=== PATIENT | male | born 1995 | race Two or more races ===

== ENCOUNTER 2021-05-15 10:24 | Emergency (ER) | payer SELFPAY ==
--- NOTE | 2021-05-15 10:49 | EDM.PDOC ---
ED HPI GENERAL MEDICAL PROBLEM - General Chief Complaint: Gastrointestinal Problem Stated Complaint: VOMITTING BLOOD Time Seen by Provider: 05/15/21 10:44 Source of Information: Reports: Patient History Limitations: Reports: No Limitations - History of Present Illness INITIAL COMMENTS - FREE TEXT/NARRATIVE: 25-year-old male presents to the ED reporting that he has been vomiting up some bright red blood off and on since yesterday morning. Patient states first emesis was in the shower yesterday morning which was bilious. Second and third emeses after dry heaving did contain flecks of blood and streaks of blood. He vomited again this morning even though he did not eat with flecks of blood in the emesis as well. Patient denies any recent heavy alcohol use. Last heavy u se of alcohol was about 2 weeks ago. He denies using Motrin, Aleve, aspirin. He takes Benadryl as needed for help sleeping. He has no pain in his abdomen or history of dyspepsia that would suggest peptic ulcer disease. He denies any diarrhea. He denies any black tarry stool. Does not feel lightheaded dizzy or weak. No noted fever or chills. No previous similar events. Patient has no odynophagia with swallowing this morning. Onset: Sudden Onset Date: 05/14/21 (Emesis containing blood was yesterday morning after getting up and showering) Onset Time: 06:00 Duration: Hour(s):, Waxing/Waning Location: Reports: Abdomen (Recurrent intermittent vomiting some of the emesis containing streaks of bright red blood. There has been times of significant dry heaves.) Quality: Reports: Other (Intermittent vomiting containing hematemesis) Severity: Mild Improves with: Reports: None Worsens with: Reports: Eating Context: Denies: Activity, Exercise (Eating or drinking seem to make it worse.), Lifting, Sick Contact, Trauma, Other Associated Symptoms: Reports: No Other Symptoms, Loss of Appetite, Nausea/Vomiting. 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.) - Related Data Allergies Allergy/AdvReac Type Severity Reaction Status Date / Time No Known Allergies Allergy Verified 05/15/21 10:40 Home Meds: Home Meds Ondansetron [Zofran] 4 mg BUCCAL Q6H PRN #5 tab 05/15/21 [Rx] Past Medical History - Past Health History Medical/Surgical History: Denies Medical/Surgical History Social & Family History - Tobacco Use Tobacco Use Status *Q: Never Tobacco User - Caffeine Use Caffeine Use: Reports: None - Alcohol Use Alcohol Use History: Yes Days Per Week of Alcohol Use: 1 - Recreational Drug Use Recreational Drug Use: No - Living Situation & Occupation Occupation: Employed ED ROS GENERAL - Review of Systems Review Of Systems: See Below Constitutional: Reports: Decreased Appetite. Denies: Fever, Chills, Malaise, Weakness, Fatigue, Weight Loss HEENT: Reports: No Symptoms Respiratory: Reports: No Symptoms Cardiovascular: Reports: No Symptoms Endocrine: Reports: No Symptoms GI/Abdominal: Reports: Decreased Appetite (Since yesterday). Denies: Abdominal Pain : Reports: No Symptoms Musculoskeletal: Reports: No Symptoms Skin: Reports: No Symptoms Neurological: Reports: No Symptoms Psychiatric: Reports: No Symptoms Hematologic/Lymphatic: Reports: No Symptoms Immunologic: Reports: No Symptoms ED EXAM, GI/ABD - Physical Exam Exam: See Below Exam Limited By: No Limitations General Appearance: Alert, WD/WN, No Apparent Distress, Other (Color is normal. Temperature is 36.6. Pulse 67 and sinus. Respiratory to 16 with O2 sats of 98% room air. BP 135/78.) Eyes: Bilateral: Normal Appearance (No blepharal pallor or scleral icterus.) Throat/Mouth: Other Head: Atraumatic (Tongue is very dry and coated quite white. He has not ate or drank much at all today.), Normocephalic Neck: Normal Inspection, Supple, Non-Tender, Full Range of Motion. No: Carotid Bruit, Lymphadenopathy (L), Lymphadenopathy (R) Respiratory/Chest: No Respiratory Distress, Lungs Clear, Normal Breath Sounds, No Accessory Muscle Use, Chest Non-Tender Cardiovascular: Normal Peripheral Pulses, Regular Rate, Rhythm, No Edema, No Gallop, No Murmur, No Rub GI/Abdominal Exam: Normal Bowel Sounds, Soft, Non-Tender, No Organomegaly, No Distention, No Mass, Pelvis Stable. No: No Abnormal Bruit, Guarding, Rigid, Rebound, Tender (Male) Exam: No Hernia Back Exam: Normal Inspection, Full Range of Motion. No: CVA Tenderness (L), CVA Tenderness (R) Extremities: Normal Inspection, Normal Range of Motion, Non-Tender, No Pedal Edema Neurological: Alert, Oriented, CN II-XII Intact, Normal Cognition, Normal Gait Psychiatric: Normal Affect, Normal Mood Skin Exam: Warm, Dry, Intact, Normal Color, No Rash Course - Vital Signs Last Recorded V/S: Last Vital Signs Temp 36.6 C 05/15/21 10:37 Pulse 67 05/15/21 10:37 Resp 16 05/15/21 10:37 BP 135/78 05/15/21 10:37 Pulse Ox 98 05/15/21 10:37 Orthostatic Blood Pressure [ 123/83 Standing] Orthostatic Blood Pressure [ 134/80 Sitting] Orthostatic Blood Pressure [ 132/79 Supine] - Orders/Labs/Meds Labs: Laboratory Tests 05/15/21 05/15/21 05/15/21 Range/Units 11:07 11:07 11:07 WBC 11.61 H (4.23-9.07) K/mm3 RBC 6.06 (4.63-6.08) M/mm3 Hgb 17.8 H (13.7-17.5) gm/dl Hct 51.7 H (40.1-51.0) % MCV 85.3 (79.0-92.2) fl MCH 29.4 (25.7-32.2) pg MCHC 34.4 (32.2-35.5) g/dl RDW Std Deviation 42.9 (35.1-43.9) fL Plt Count 332 (163-337) K/mm3 MPV 9.8 (9.4-12.3) fl Neut % (Auto) 65.7 (34.0-67.9) % Lymph % (Auto) 23.2 (21.8-53.1) % [place] % (Auto) 8.2 (5.3-12.2) % Eos % (Auto) 2.2 (0.8-7.0) Baso % (Auto) 0.4 (0.1-1.2) % Neut # (Auto) 7.63 H (1.78-5.38) K/mm3 Lymph # (Auto) 2.69 (1.32-3.57) K/mm3 [place] # (Auto) 0.95 H (0.30-0.82) K/mm3 Eos # (Auto) 0.25 (0.04-0.54) K/mm3 Baso # (Auto) 0.05 (0.01-0.08) K/mm3 Manual Slide Review Abnormal smear PT 11.0 (9.7-12.0) SECONDS INR 1.03 APTT 27.1 (21.7-31.4) SECONDS Sodium 140 (136-145) mEq/L Potassium 3.2 L (3.5-5.1) mEq/L Chloride 101 (98-107) mEq/L Carbon Dioxide 28 (21-32) mEq/L Anion Gap 14.2 (5-15) BUN 12 (7-18) mg/dL Creatinine 1.3 (0.7-1.3) mg/dL Est Cr Clr Drug Dosing 82.63 mL/min Estimated GFR (MDRD) > 60 (>60) mL/min BUN/Creatinine Ratio 9.2 L (14-18) Glucose 87 (70-99) mg/dL Calcium 8.9 (8.5-10.1) mg/dL Total Bilirubin 1.3 H (0.2-1.0) mg/dL AST 43 H (15-37) U/L ALT 98 H (16-63) U/L Alkaline Phosphatase 67 (46-116) U/L C-Reactive Protein 1.6 H* (<1.0) mg/dL Total Protein 8.6 H (6.4-8.2) g/dl Albumin 4.5 (3.4-5.0) g/dl Globulin 4.1 gm/dL Albumin/Globulin Ratio 1.1 (1-2) Lipase 113 (73-393) U/L Meds: Medications Discontinued Medications Generic Name Dose Route Start Last Admin Trade Name Freq PRN Reason Stop Dose Admin Dextrose/Lactated Ringer's 1,000 mls @ 999 mls/hr 05/15/21 11:00 05/15/21 11:10 Dextrose 5%-Lactated Ringers IV 999 mls/hr ASDIRECTED SANAM Administration Metoclopramide HCl 10 mg 05/15/21 10:51 05/15/21 11:10 Metoclopramide 10 Mg/2 Ml Sdv IVPUSH 05/15/21 10:52 10 mg ONETIME ONE Administration Pantoprazole Sodium 80 mg 05/15/21 10:50 05/15/21 11:10 Pantoprazole 40 Mg Vial IVPUSH 05/15/21 10:51 80 mg BOLUS ONE Administration - Radiology Interpretation Free Text/Narrative:: 25-year-old male presents to the ED reporting spontaneous emesis first thing yesterday morning while getting ready for work in the shower. Second emesis seem to contain a few streaks of blood and third fourth emeses did contain streaks of blood. He did throw up again this morning with his few streaks of bright red blood as well. He has no abdominal pain. No history to suggest chronic NSAID use or aspirin use. He is feeling mildly nauseated. Did not eat or drink at all today. Did not eat or drink much yesterday either. He estimates he threw up about 7 times in total yesterday with about 5 of the emesis containing some blood. He has never thrown up pure blood or clot. No past history of upper GI bleeding. He denies any dark black tarry stools today. He denies feeling lightheaded weak or dizzy. No recent heavy alcohol use. Plan orthostatic blood pressures to be done. IV will be D5 Ringer's lactate at open. He will be given Protonix 80 mg IV bolus. History would suggest he is probably ruptured some blood vessels in the lower esophagus or stomach from vomiting but has no odynophagia to be worrisome for Nisha Bobby tear. History of vomiting suggest viral gastroenteritis disorder. He will be given Reglan 10 mg IV to arrest any further vomiting. - Re-Assessments/Exams Free Text/Narrative Re-Assessment/Exam: 05/15/21 11:05 blood pressures reveal a blood pressure 132/79 with a heart rate of 72 supine. BP 134/80 with a heart rate of 82 sitting. Standing BP 123/83 with a heart rate of 86 i.e. mildly orthostatic. 05/15/21 12:17 White count is mildly elevated at 11.61. The auto differential shows 65.7% neutrophils. Hemoglobin is 17.8 with hematocrit of 51.7 indicating hemoconcentration and volume depletion. Platelet count 332,000. PT is 11.0 with an INR of 1.03 and a PTT of 27.1. Sodium is 140 with a potassium slightly low at 3.2. Chloride 101 with a bicarb of 28. Anion gap is 14.2. BUN is 12 with a creatinine of 1.3. GFR is greater than 60. Glucose is 87 with a calcium of 8.9. Bilirubin mildly elevated at 1.3. AST is mildly elevated at 43 and ALT mildly elevated at 98. Alkaline phosphatase is 67. C-reactive protein is 1.6. Total protein 8.6 with an albumin fraction of 4.5 serum lipase normal at 113 05/15/21 12:21 I have discussed the findings with the patient. He prefers not to wait for another liter of IV fluids and will try some Gatorade Powerade. I will therefore defer discharge him to home. He will use Zofran 4 mg sublingual every 4 hours as needed for nausea relief. Note given to excuse him from the workplace today. Departure - Departure Time of Disposition: 12:21 Disposition: Home, Self-Care 01 Condition: Fair Clinical Impression: Gastric hemorrhage due to viral gastritis - Discharge Information *PRESCRIPTION DRUG MONITORING PROGRAM REVIEWED*: Not Applicable *COPY OF PRESCRIPTION DRUG MONITORING REPORT IN PATIENT RAYMUNDO: Not Applicable Prescriptions: Ondansetron [Zofran] 4 mg BUCCAL Q6H PRN #5 tab PRN Reason: nausea or vomiting Instructions: Viral Gastroenteritis, Adult, [id number] Referrals: PCP,None [Primary Care Provider] - Forms: ED Department Discharge, ED Return to Work/School Form Additional Instructions: Evaluation in the emergency room today in regards to recurrent vomiting with nausea since yesterday morning after getting up to get ready for work. You appreciated bright red blood in emesis on several occasions over the last day or so. Lab work shows no significant loss of blood. History would not suggest any peptic ulcer disease and lab test do not reveal any other abnormalities other than dehydration. You did receive a liter of IV fluids in the emergency department with medication to prevent further nausea or vomiting. Suggest sipping clear fluids for the rest of the day particular things like Gatorade or Powerade. When hungry try soda crackers and then advance to white bread with jam on it. Suggest soup for supper such as turkey noodle or chicken rice and then advance diet as tolerated. I have written a prescription for Zofran tablets that can be used under the tongue 1 every 4-6 hours as necessary to relieve any further nausea or vomiting. Return to the hospital if you have further bleeding with vomiting. Sepsis Event Note (ED) - Evaluation Sepsis Screening Result: No Definite Risk - Focused Exam Vital Signs: Vital Signs Temp Pulse Resp BP Pulse Ox 05/15/21 10:37 36.6 C 67 16 135/78 98
[2021-05-15] MEDS ORDERED: Pantoprazole 40 MG Vial IVPUSH ONE (10:50)
[2021-05-15] MEDS ORDERED: Metoclopramide 10 MG/2 ML SDV IVPUSH ONE (10:51)
[2021-05-15] MEDS ORDERED: Dextrose 5%-Lactated Ringers 1,000 ML IV SCH (11:00)
== END 2021-05-15 12:35 | disposition home or self-care (01) ==
LOC: JD.ED 10:24
DX: K92.2 Gastrointestinal hemorrhage, unspecified (principal); A08.4 Viral intestinal infection, unspecified; D72.829 Elevated white blood cell count, unspecified
CPT/HCPCS: 36415; 80053; 83690; 85025; 85610; 85730; 86140; 96374; 96375; 99284; C9113; J2765; J7121